=== PATIENT | male | born 1960 | race Caucasian/White ===

== ENCOUNTER 2021-08-29 16:00 | Emergency (ER) | payer MEDICARE ==
[2021-08-29 16:44] LABS: HEMOGLOBIN 12.2 gm/dl (14.0-17.5); RED BLOOD COUNT 4.99 M/UL (4.20-5.50); WHITE BLOOD COUNT 3.1 K/UL (4.5-11.0)
[2021-08-29 17:20] LABS: BUN/CREATININE RATIO 15 (0-10)
[2021-08-29] MEDS ORDERED: AZITHROMYCIN500 MG PO (22:47)
== END 2021-08-29 22:59 | disposition home or self-care (01) ==
LOC: ER1 16:00
PROVIDERS: Emergency Medicine
DX: U07.1 COVID-19 (principal); J12.82 Pneumonia due to coronavirus disease 2019; I10 Essential (primary) hypertension; E11.9 Type 2 diabetes mellitus without complications; E78.5 Hyperlipidemia, unspecified; F17.200 Nicotine dependence, unspecified, uncomplicated; Z88.5 Allergy status to narcotic agent; Z88.8 Allergy status to other drugs, medicaments and biological substances
CPT/HCPCS: 0240U; 36600; 71045; 80048; 82550; 82553; 82803; 83690; 83874; 83880; 84484; 85025; 85379; 85610; 85730; 93005; 99285; J7030; Q9967

== ENCOUNTER → 2021-09-02 | Outpatient (CLI) | payer MEDICARE ==
[~2021-09-02] VITALS: Ht 205.7 cm; Wt 152.0 kg
[~2021-09-02] MED LIST: AZITHROMYCIN500 MG PO; PROVENTIL HFA6.7 GM INH
== END ==
LOC: EROP 12:00
DX: U07.1 COVID-19 (principal); Z23 Encounter for immunization; I10 Essential (primary) hypertension; E11.9 Type 2 diabetes mellitus without complications; F17.200 Nicotine dependence, unspecified, uncomplicated; Z68.35 Body mass index [BMI] 35.0-35.9, adult
CPT/HCPCS: M0247; Q0247

== ENCOUNTER 2021-09-06 13:40 | Emergency (ER) | payer MEDICARE ==
[~2021-09-06 13:40] MED LIST changes: -PROVENTIL HFA6.7 GM INH
[2021-09-06 15:18] LABS: HEMOGLOBIN 12.3 gm/dl (14.0-17.5); RED BLOOD COUNT 4.9 M/UL (4.20-5.50); WHITE BLOOD COUNT 2.5 K/UL (4.5-11.0)
[2021-09-06 15:42] LABS: BUN/CREATININE RATIO 11 (0-10)
[2021-09-06] MEDS ORDERED: PROVENTIL HFA6.7 GM INH (17:13)
== END 2021-09-06 17:14 | disposition home or self-care (01) ==
LOC: ER1 13:40
PROVIDERS: Physician Assistant
DX: U07.1 COVID-19 (principal); D61.818 Other pancytopenia; F17.210 Nicotine dependence, cigarettes, uncomplicated
CPT/HCPCS: 71045; 80053; 82550; 82553; 83605; 83615; 83874; 84484; 85025; 86140; 87040; 93005; 99285